=== PATIENT | female | born 1975 | race Caucasian/White ===

== ENCOUNTER 2024-07-08 15:04 | Emergency (ER) | payer OTHER, SELFPAY ==
[2024-07-08] VITALS (13 sets, daily range): BP systolic 120–134; BP diastolic 86–99; PULSE 53–62; RESP 18; TEMP 36.2; O2SAT 94–100; BMI 23.0
--- NOTE | 2024-07-08 15:49 | ED_ITS ---
HPI - General Adult General Chief complaint: Weakness Stated complaint: Sinus bradycardia Time Seen by Provider: 07/08/24 15:49 History of Present Illness HPI narrative: comes to ed with concerns of feeling weak and chest pain that came in waves while getting her mail today at 1220 [address] to her mailbox. developed a headache, feeling warm and did call 911. does not have health insurance and was evaluated per [facility]. had a friend bring her here. is a horse justin. did hit her head on the [place] of her car on Thursday. has been seeing a chiropractor for various concerns. denies cp at present. 48-year-old woman presenting to the emergency department with concern of chest pain and then near syncopal event. 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 She had driven to her mailbox and seem to have onset of some sharp left-sided chest pain above and lateral to the breast area. Total chest pain lasted maybe 45 minutes. Shortly after onset though developed waves of heat and then felt like she was about to pass out and that was maybe even more alarming than the chest pain. She called a friend. Notes through tears here in our conversation that that talking with friends and family does seem to help the discomfort go away. She was on the phone when I enter the room. She is accompanied by a friend. With this onset she was unable to palpate a pulse. Notes herself to be chronically with a slower heart rate. As a late teenager did have episodes of similar chest pain that seem to be undiagnosable. This was more pain though than she has experienced before. Subsequently I believe started taking Richford lopez and this seemed to help. Also for chronic pain has used a Bemer. This has been quite helpful. Has not had any fever cough or cold symptoms recently. Notes herself to be without health insurance. Related Data Home Medications ?Medication ?Instructions ?Recorded ?Confirmed No Known Home Medications 07/08/24 07/08/24 Allergies Allergy/AdvReac Type Severity Reaction Status Date / Time No Known Drug Allergies Allergy Verified 07/08/24 15:19 Review of Systems Status of ROS: Reports: 6 or more systems reviewed and unremarkable except as noted in History and below PFSH PFSH Social History Smoking Status: Never smoker Do you use any of these nicotine containing products: None How often do you have a drink containing alcohol: never How often do you have six or more drinks on one occasion: Never AUDIT-C Alcohol total score: 0 Non-prescribed substance use: denies use service: No Exam Narrative: Exam Narrative: Pleasant. As noted initially tearful otherwise NAD. She is breathing easily. Heart is slow and regular in rhythm. Without murmur. Neck is supple without supraclavicular crepitus. Lungs are clear. Chest is without reproducible pain at this time. She is well-perfused peripherally moving all extremities without difficulty. Const: Vital Signs, click to edit/add: Vital Signs - 24 hr 07/08/24 15:20 07/08/24 15:34 07/08/24 15:35 Temperature 97.2 F L Pulse Rate 56 L 57 L Pulse Rate [Pulse Oximeter] 53 L Respiratory Rate 18 Blood Pressure 120/99 H Blood Pressure [Le ft Upper Arm] 120/91 H Pulse Oximetry 100 100 100 Oxygen Delivery Me od Room Air 07/08/24 15:45 07/08/24 16:00 07/08/24 16:02 Temperature Pulse Rate 57 L 61 62 Pulse Rate [Pulse Oximeter] Respiratory Rate Blood Pressure 134/86 Blood Pressure [Le ft Upper Arm] Pulse Oximetry 100 99 100 Oxygen Delivery Me thod 07/08/24 16:15 07/08/24 16:35 07/08/24 16:45 Temperature Pulse Rate 54 L 59 L 56 L Pulse Rate [Pulse Oximeter] Respiratory Rate Blood Pressure Blood Pressure [Le ft Upper Arm] Pulse Oximetry 99 94 [facility] 17:00 07/08/24 17:04 07/08/24 17:15 Temperature Pulse Rate 56 L 59 L 59 L Pulse Rate [Pulse Oximeter] Respiratory Rate Blood Pressure Blood Pressure [Le ft Upper Arm] Pulse Oximetry 100 100 100 Oxygen Delivery Me thod 07/08/24 17:30 Temperature Pulse Rate 56 L Pulse Rate [Pulse Oximeter] Respiratory Rate Blood Pressure Blood Pressure [Le ft Upper Arm] Pulse Oximetry 100 [facility] Documenting provider has reviewed patient's vital signs: yes Course Vital Signs Vital signs: Initial Vital Signs Temperature 97.2 F L 07/08/24 15:20 Temperature Source Temporal Artery Scan 07/08/24 15:20 Pulse Rate 53 L 07/08/24 15:20 Pulse Rhythm Regular 07/08/24 15:20 Respiratory Rate 18 07/08/24 15:20 Blood Pressure 120/91 H 07/08/24 15:20 Blood Pressure Mean 100 07/08/24 15:20 Blood Pressure Position Supine 07/08/24 15:20 Pulse Oximetry 100 07/08/24 15:20 Oxygen Delivery Method Room Air 07/08/24 15:20 Vital Signs Temperature 97.2 F L 07/08/24 15:20 Pulse Rate 53 L 07/08/24 15:20 Respiratory Rate 18 07/08/24 15:20 Blood Pressure 120/91 H 07/08/24 15:20 Pulse Oximetry 100 07/08/24 15:20 Oxygen Delivery Method Room Air 07/08/24 15:20 Temperature 97.2 F L 07/08/24 15:20 Pulse Rate 56 L 07/08/24 17:30 Respiratory Rate 18 07/08/24 15:20 Blood Pressure 134/86 07/08/24 16:02 Pulse Oximetry 100 07/08/24 17:30 Oxygen Delivery Method Room Air 07/08/24 15:20 Medical Decision Making MDM Narrative Medical decision making narrative: I suspect this is unlikely to have been an ischemic cardiovascular event. Does not seem to have persistent symptoms were one might think of pulmonary embolus. I suppose possible vascular dissection though rather low risk for this. No persistent symptoms to suggest pneumothorax either number mediastinum. Does not appear to be a radiating from the back. Perhaps this was some referred stomach or intestinal/gas discomfort? Other vascular spasm? Spasm of internal mammaries? Pain and vasovagal response? Could have been a transient tachyarrhythmia. Unlikely that bradycardia would have contributed to pain. Costochondritis or pericarditis? Doubtful either one as not persistent. Not clearly positional either. Appears well at this time. Is concerned about cost. I appreciate this. Would monitor here in the emergency department for dysrhythmia. Otherwise check EKG and focused labs given differential above. Labs are reassuring. EKG as well. No further events See patient discharge plan for further discussion Medical Records Medical records reviewed: Yes I reviewed the patient's medical records Lab Data Lab results reviewed: Yes I reviewed the patient's lab results Labs: Lab Results 07/08/24 Range/Units 16:28 D-Dimer Quant (PE/DVT) 0.17 (0.00-0.50) ug/ml Troponin I < 0.01 L (0.01-0.04) ng/mL C-Reactive Protein < 0.5 L (0.5-1.0) mg/dL ECG Data Attestation: I personally reviewed and interpreted this ECG as follows: (Sinus rhythm. Bradycardia. Rate of 50.) Discharge Plan Discharge Clinical Impression: Atypical chest pain, Vasovagal near-syncope Additional Instructions: I think you are safe. While we could have done a much bigger workup, the initial testing we did is reassuring. EKG other than a little slow, looks great. Would be re-evaluated for recurrence of persistent chest pain, increasing shortness of breath or associated nausea. Stay well-hydrated. Pleasure to meet you. Prescriptions: No Action No Known Home Medications Follow Up/Referrals: Provider,Not a Local [Primary Care Provider] - Stand Alone Forms: [employer] Info Instructions
[2024-07-08 16:57] LABS: D Dimer Quantitative* 0.17 ug/ml (0.00-0.50)
[2024-07-08 17:32] LABS: Troponin I* < 0.01 ng/mL (0.01-0.04)
[2024-07-08 17:54] LABS: C Reactive Protein* < 0.5 mg/dL (0.5-1.0)
== END 2024-07-08 18:18 | disposition home or self-care (01) ==
PROVIDERS: Emergency Provider Family Medicine
DX: R07.89 Other chest pain (principal); R55 Syncope and collapse
CPT/HCPCS: 36415; 84484; 85379; 86140; 99284